=== PATIENT | female | born 1950 | race Caucasian/White ===

== ENCOUNTER 2017-06-29 20:10 | Emergency (ER) | payer MEDICARE, BC ==
--- NOTE | 2017-06-29 20:38 | EDM.PDOC ---
ED HPI GENERAL MEDICAL PROBLEM - General Chief Complaint: Laceration Stated Complaint: finger laceration Time Seen by Provider: 06/29/17 20:37 Source of Information: Reports: Patient History Limitations: Reports: No Limitations - History of Present Illness INITIAL COMMENTS - FREE TEXT/NARRATIVE: This patient is a 67 year old female that presents to the ER. Patient reports that she was reaching in the cabinet when a glass measuring cup fell and broke. She reports the glass hit her right 5th finger causing a laceration. Patent reports no other injuries. Patient sensory/motor function intact, neurovascular intact. No pain with ROM. Pulses +2, cap refill <2 sec. Stable. Onset: Today Location: Reports: Upper Extremity, Right Severity: Mild Improves with: Reports: None Worsens with: Reports: None Associated Symptoms: Reports: No Other Symptoms Right Hand Pain Score (Numeric/FACES): 2 - Related Data Allergies Allergy/AdvReac Type Severity Reaction Status Date / Time No Known Allergies Allergy Verified 06/29/17 20:18 Home Meds: Home Meds Aspirin 81 mg PO DAILY 06/29/17 [History] Fish Oil/[facility] [place]-3 Fatty Acids [Fish Oil 1,000 MG] 1 gm PO DAILY 06/29/17 [History ] Multivitamin [Multi-Day Vitamins] 1 tab PO DAILY 06/29/17 [History] Vitamin E 1,000 unit PO DAILY 06/29/17 [History] atorvaSTATin [Lipitor] 10 mg PO DAILY 06/29/17 [History] ED ROS GENERAL - Review of Systems Review Of Systems: See Below Constitutional: Reports: No Symptoms HEENT: Reports: No Symptoms Respiratory: Reports: No Symptoms Cardiovascular: Reports: No Symptoms Endocrine: Reports: No Symptoms GI/Abdominal: Reports: No Symptoms : Reports: No Symptoms Musculoskeletal: Reports: No Symptoms Skin: Reports: Wound (laceration right 5th digit. ) Neurological: Reports: No Symptoms Psychiatric: Reports: No Symptoms Hematologic/Lymphatic: Reports: No Symptoms Immunologic: Reports: No Symptoms ED EXAM, SKIN/RASH Exam: See Below Exam Limited By: No Limitations General Appearance: Alert, WD/WN, No Apparent Distress Head: Atraumatic, Normocephalic Respiratory/Chest: No Respiratory Distress Cardiovascular: Normal Peripheral Pulses Peripheral Pulses: 2+: Radial (L), Radial (R) Extremities: Normal Range of Motion, Non-Tender, No Pedal Edema, Normal Capillary Refill Neurological: Alert, Oriented Psychiatric: Normal Affect, Normal Mood Skin: Warm, Dry, Normal Color, No Rash, Wound/Incision Location, Skin: Lower Extremity, Right (right 5th digit finger laceration) ED SKIN PROCEDURES - Laceration/Wound Repair Right Finger Lac/Wound length In cm: 2 Appearance: Superficial Distal NVT: Neuro & Vascular Intact Anesthetic Type: Digital Local Anesthesia - Lidocaine (Xylocaine): 1% Plain Local Anesthesia - Bupivicaine (Marcaine): 0.5% Plain Local Anesthetic Volume: 3cc Skin Prep: Chlorhexidine (Hibiciens) Saline Irrigation (cc's): 10 Exploration/Debridement/Repair: Wound Explored, In a Bloodless Field, Explored to Base, No Foreign Material Found Closed with: Sutures Suture Size: other (5-0) # of Sutures: 5 Tetanus Status Addressed: Yes Complications: No Progress/Comments: Finger tourniquet applied to right 5th digit. applied for 4 minutes during suturing, bleeding controlled, then removed. No complications. Finger splint applied to prevent bending of the finger post sutures. Course - Vital Signs Last Recorded V/S: Last Vital Signs Temp 97.3 F 06/29/17 20:20 Pulse 90 06/29/17 20:20 Resp 20 06/29/17 20:20 BP 148/81 H 06/29/17 20:20 Pulse Ox 96 06/29/17 20:20 - Orders/Labs/Meds Orders: Active Orders 24 hr Category Date Time Status Vaccines to be Administered [RC] PER UNIT ROUTINE Care 06/29/17 20:44 Active Fingers Fifth Digit Rt F9 [CR] Stat Exams 06/29/17 20:38 Taken Meds: Medications Discontinued Medications Generic Name Dose Route Start Last Admin Trade Name Freq PRN Reason Stop Dose Admin Bupivacaine HCl 10 ml 06/29/17 20:44 06/29/17 21:14 Sensorcaine-Mpf 0.5% INJECT 06/29/17 20:45 10 ml ONETIME ONE Administration Diphtheria/Tetanus/Acell Pertussis 0.5 ml 06/29/17 20:44 06/29/17 21:12 Adacel IM 06/29/17 20:45 0.5 ml .ONCE ONE Administration Lidocaine HCl 20 ml 06/29/17 20:44 06/29/17 21:14 Xylocaine 1% INJECT 06/29/17 20:45 20 ml ONETIME ONE Administration Departure - Departure Time of Disposition: 21:46 Disposition: Home, Self-Care 01 Condition: Good Clinical Impression: Finger laceration Qualifiers: Encounter type: initial encounter Finger: little finger Damage to nail status: without damage Foreign body presence: without foreign body Laterality: left Qualified Code(s): S61.217A - Laceration without foreign body of left little finger without damage to nail, initial encounter - Discharge Information Instructions: Stitches, [place], or Adhesive Wound Closure, [id number] Referrals: Keo Cartwright MD [Primary Care Provider] - Forms: ED Department Discharge Additional Instructions: Followup with your primary care provider in about 7 days for suture removal Return to the ER for worsening of condition or any emergent concerns Wash wound gently with soap and water, rinse, pat dry. Keep clean - My Orders Last 24 Hours: My Active Orders 06/29/17 20:38 Fingers Fifth Digit Rt F9 [CR] Stat 06/29/17 20:44 Vaccines to be Administered [RC] PER UNIT ROUTINE - Assessment/Plan Last 24 Hours: My Active Orders 06/29/17 20:38 Fingers Fifth Digit Rt F9 [CR] Stat 06/29/17 20:44 Vaccines to be Administered [RC] PER UNIT ROUTINE Plan: PLEASE SEE RN NOTE FOR PFSH.
[2017-06-29] MEDS ORDERED: Bupivacaine 0.5% 10 ML SDV INJECT ONE (20:44)
[2017-06-29] MEDS ORDERED: Diphtheria,Pertussis(Acell),Tetanus Vaccine 0.5 ML Syringe IM ONE (20:44)
[2017-06-29] MEDS ORDERED: Lidocaine 1% 20 ML MDV INJECT ONE (20:44)
== END 2017-06-29 21:50 | disposition home or self-care (01) ==
LOC: CC.ED 20:10
DX: S61.216A Laceration without foreign body of right little finger without damage to nail, initial encounter (principal); W25.XXXA Contact with sharp glass, initial encounter; Z79.899 Other long term (current) drug therapy; Z23 Encounter for immunization; Z79.82 Long term (current) use of aspirin
CPT/HCPCS: 12001; 73140-F9; 90471; 90715; 99283